=== PATIENT | female | born 1980 | race Caucasian/White ===

== ENCOUNTER 2018-06-07 17:20 | Emergency (ER) | payer MEDICAID ==
[2018-06-07] MEDS ORDERED: LORazepam 1 MG TAB PO ONE (17:36)
[2018-06-07 17:40] VITALS: BP 144/105
--- NOTE | 2018-06-07 17:45 | EDPHY ---
H & P Stated Complaint: R hand pain Time Seen by Provider: 06/07/18 17:42 HPI/ROS: CHIEF COMPLAINT: Right hand pain HISTORY OF PRESENT ILLNESS: The patient presents to the ED with complaints of neuropathic pain in her right hand after receiving a TENS treatment. The patient has a history of chronic pain. She is currently a resident at [facility]. She denies any direct fall or trauma. The patient was brought in by paramedics and was common cooperative in route. The patient escalated quite a bit prior to coming to the emergency department complaining of a disproportionate amount of pain. The patient denies any fever, fall or additional acute complaints. REVIEW OF SYSTEMS: A comprehensive 10 point review of systems is otherwise negative aside from elements mentioned in the history of present illness. Source: Patient Exam Limitations: No limitations - Medical/Surgical History Hx Asthma: Yes Hx Chronic Respiratory Disease: No Hx Diabetes: No Hx Cardiac Disease: No Hx Renal Disease: No Hx Cirrhosis: No Hx Alcoholism: No Hx HIV/AIDS: No Hx Splenectomy or Spleen Trauma: No Other PMH: C- spine fusion, Asthma, anxiety, PTSD - Social History Smoking Status: Heavy smoker - Physical Exam Exam: General Appearance: Alert, anxious, no acute distress Eyes: Pupils equal and round no pallor or injection Neurological: 5/5 strength noted throughout the right upper extremity, normal sensory exam Skin: Warm and dry, no rashes, no cellulitis or abscess Musculoskeletal: No clinical evidence of septic arthritis Extremities: symmetrical, full range of motion Constitutional: Initial Vital Signs Temperature (C) 36.9 C 06/07/18 17:38 Heart Rate 95 06/07/18 17:38 Respiratory Rate 18 06/07/18 17:38 Blood Pressure 144/105 H 06/07/18 17:38 O2 Sat (%) 96 06/07/18 17:38 O2 Delivery Mode Room Air Allergies/Adverse Reactions: ketorolac [From Toradol] Allergy (Verified 06/07/18 17:33) onion Allergy (Verified 06/07/18 17:33) prochlorperazine Allergy (Verified 06/07/18 17:33) tramadol Allergy (Verified 06/07/18 17:33) Home Medications: Medication Instructions Recorded ALPRAZolam 06/07/18 Ascorbic Acid 06/07/18 Aspirin 06/07/18 Benadryl 06/07/18 Calcium-D Tablet 06/07/18 Cyclobenzaprine 06/07/18 Duoneb (*) 06/07/18 Gabapentin 06/07/18 Lidoderm 06/07/18 Melatonin 06/07/18 Morphine Sulfate ER 06/07/18 Narcan 06/07/18 PERCOCET 2.5-325 MG TABLET 06/07/18 Senna-S Tablet 06/07/18 Zoloft 06/07/18 Medical Decision Making ED Course/Re-evaluation: The patient presents to the ED with an acute exacerbation of chronic pain. The patient is noted to be neurovascularly intact. She has no evidence of a septic arthritis, cellulitis or abscess. There is no history of a direct fall or trauma. I do not feel that x-rays will be helpful in evaluating her complaints. The patient was offered Ativan in the emergency department and declined. The patient is now stating she wants to be discharged back to her intermediate. I feel this is reasonable as I see no evidence of an acute emergency condition involving her right upper extremity. - Data Points Medications Given: Discontinued Medications Lorazepam (Ativan) 1 mg PO EDNOW ONE Stop: 06/07/18 17:37 Last Admin: 06/07/18 17:37 Dose: 1 mg Departure - Departure Disposition: Home, Routine, Self-Care Clinical Impression: Right wrist pain Condition: Good Instructions: Musculoskeletal Pain (ED) Additional Instructions: 1. You may want to avoid getting TENS treatments as this appears to exacerbate your chronic pain. 2. Return to the ED for fever, swelling or redness. 3. Follow up with your regular physician as scheduled.
== END 2018-06-07 18:27 | disposition home or self-care (01) ==
DX: M25.531 Pain in right wrist (principal); G89.29 Other chronic pain; F17.200 Nicotine dependence, unspecified, uncomplicated

== ENCOUNTER 2018-06-28 08:58 | Emergency (ER) | payer OTHER, MEDICAID ==
[2018-06-28] MEDS ORDERED: LET GEL TOPICAL 1 EA SYR TP ONE (09:10)
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
[2018-06-28 09:25] LABS: PLATELET COUNT 356 10^3/uL (150-400)
[2018-06-28] MEDS ORDERED: KETOROLAC 15 MG/1 ML SDV IVP ONE (10:50)
[2018-06-28 11:42] VITALS: BP 110/72
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
== END 2018-06-28 11:55 | disposition home or self-care (01) ==
LOC: EDUNIT#
PROC: 0HQ0XZZ Repair Scalp Skin, External Approach (ICD-10-PCS; principal; 2018-06-28)
DX: S01.81XA Laceration without foreign body of other part of head, initial encounter (principal); S80.211A Abrasion, right knee, initial encounter; S80.212A Abrasion, left knee, initial encounter; V03.09XA Pedestrian with other conveyance injured in collision with car, pick-up truck or van in nontraffic accident, initial encounter; Y92.89 Other specified places as the place of occurrence of the external cause; Y93.9 Activity, unspecified; Y99.9 Unspecified external cause status; Z98.1 Arthrodesis status; Z99.3 Dependence on wheelchair
CPT/HCPCS: 96374; J1885

== ENCOUNTER 2018-11-03 12:10 | Emergency (ER) | payer MEDICAID, OTHER ==
--- NOTE | 2018-11-03 12:50 | EDPHY ---
H & P Stated Complaint: back pain Time Seen by Provider: 11/03/18 12:47 HPI/ROS: CHIEF COMPLAINT: Back pain HISTORY OF PRESENT ILLNESS: This is a 38-year-old female status post multiple cervical and thoracic surgeries. She states that her initial injury was related to distant trauma. She has Hawkins rods. She is a resident at [facility]. She presents today complaining of low right-sided back pain that began 5 days ago. She states that it began after she was "break dancing" in her wheelchair. She had a relatively abrupt onset of pain at that site, thought that she had a pulled muscle. She consulted with the physical therapist at [facility]. She has had no improvement over the last 5 days. She routinely takes morphine 15 mg twice daily, Percocet every 6 hr, Flexeril 3 times daily, and Xanax 3 times daily. She has continued these medications. She denies new numbness or weakness. No bowel or bladder problems. No dysuria , urinary urgency or frequency, or hematuria. She has not had fever. Aside from the dancing in her wheelchair there has been no direct trauma. She is wheelchair-bound and has been for the past year. REVIEW OF SYSTEMS: A ten system review of systems was performed and is negative with the exception of the items mentioned in the HPI. Past medical history: Multiple cervical and thoracic surgeries Depression Past surgical history: Multiple cervical and thoracic surgeries Social history: She lives at [facility]. She does not use tobacco products. General Appearance: Alert. Vital signs reviewed. Heart rate 110 at triage. Eyes: Pupils equal and round, no conjunctival injection, no discharge. Anicteric. ENT, Mouth: Mucous membranes are moist, no oropharyngeal erythema or edema. Neck: No lymphadenopathy, supple. Respiratory: Lungs are clear to auscultation; no wheezes, rales, or rhonchi. Cardiovascular: Regular rate and rhythm; no murmur, rub, or gallop. Gastrointestinal: Abdomen is soft and nontender, no masses or organomegaly, bowel sounds normal. Skin: Warm and dry, no rashes on exposed skin, normal color. Back: Nontender to palpation over the thoracolumbar spine. No CVAT. Extremities: No lower extremity edema, no calf tenderness or swelling. Neurological: Alert and oriented. Moving all four extremities spontaneously. Strength is 5 over 5 bilaterally with testing of all major motor groups in UEs , 4/5 LEs. Sensation is intact to light touch over all 4 extremities. Psychiatric: Normal affect. - Personal History LMP (Females 10-55): Now Current Tetanus/Diphtheria Vaccine: Yes Current Tetanus Diphtheria and Acellular Pertussis (TDAP): Yes - Medical/Surgical History Hx Asthma: Yes Hx Chronic Respiratory Disease: No Hx Diabetes: No Hx Cardiac Disease: No Hx Renal Disease: No Hx Cirrhosis: No Hx Alcoholism: No Hx HIV/AIDS: No Hx Splenectomy or Spleen Trauma: No Other PMH: C- spine fusion, Asthma, anxiety, PTSD - Social History Smoking Status: Heavy smoker Constitutional: Initial Vital Signs Temperature (C) 36.9 C 11/03/18 12:15 Heart Rate 110 H 11/03/18 12:15 Respiratory Rate 16 11/03/18 12:15 Blood Pressure 117/94 H 11/03/18 12:15 O2 Sat (%) 96 11/03/18 12:15 O2 Delivery Mode Room Air Allergies/Adverse Reactions: ketorolac [From Toradol] Allergy (Verified 06/28/18 09:09) onion Allergy (Verified 06/28/18 09:09) prochlorperazine Allergy (Verified 06/28/18 09:09) tramadol Allergy (Verified 06/28/18 09:09) Home Medications: Medication Instructions Recorded ALPRAZolam 06/07/18 Ascorbic Acid 06/07/18 Aspirin 06/07/18 Benadryl 06/07/18 Calcium-D Tablet 06/07/18 Cyclobenzaprine 06/07/18 Duoneb (*) 06/07/18 Gabapentin 06/07/18 Lidoderm 06/07/18 Melatonin 06/07/18 Morphine Sulfate ER 06/07/18 Narcan 06/07/18 PERCOCET 2.5-325 MG TABLET 06/07/18 Senna-S Tablet 06/07/18 Zoloft 06/07/18 Lidocaine 4%/Menthol 1% [Icy Hot 1 patch TD DAILY #10 patch 11/03/18 Lidocaine/Menthol 4%/1% Patch (*)] Medical Decision Making ED Course/Re-evaluation: Because of her multiple surgeries a Lumbar spine x-ray was obtained to assess bones and any hardware visible at that site. There is mild subluxation of L5 on S1. No fractures. No obvious acute injury. I suspect that this is a musculoskeletal problem, as she thought. Neither she nor I think that there is any new neurologic deficit. Lidocaine patch was placed over the painful area and provided some relief. We talked about symptomatic treatment. She will continue with her current prescribed pain medications and a muscle relaxant. She is given a referral to [facility], as she wished to have a specialist involved. I think that this is reasonable in this complex situation. Differential Diagnosis: Back pain including but not limited to muscular pain, herniated disc, spine fracture, intra-abdominal causes and urinary tract infection. - Data Points Medications Given: Discontinued Medications Cyclobenzaprine HCl (Flexeril) 10 mg PO EDNOW ONE Stop: 11/03/18 13:07 Last Admin: 11/03/18 13:09 Dose: 10 mg Miscellaneous Information (Patch Removal) 1 ea TD DAILY21 MIAN Stop: 05/02/19 20:59 Last Admin: 11/03/18 14:32 Dose: 1 ea Miscellaneous Medication (Icy Hot Lidocaine/Menthol 4%/1% Patch) 1 patch TD EDNOW ONE Stop: 11/03/18 14:27 Last Admin: 11/03/18 14:29 Dose: 1 patch Oxycodone/Acetaminophen (Percocet 5/325) 1 tab PO EDNOW ONE Stop: 11/03/18 13:06 Last Admin: 11/03/18 13:09 Dose: 1 tab Departure - Departure Disposition: Home, Routine, Self-Care Clinical Impression: Lumbar strain Qualifiers: Encounter type: initial encounter Qualified Code(s): S39.012A - Strain of muscle, fascia and tendon of lower back, initial encounter Condition: Good Instructions: Low Back Strain (ED) Additional Instructions: Continue current medications. Try the lidocaine patches. I suggest that you arrange an appointment at [facility]--let them know that you were referred by the emergency department. Referrals: [facility] [Outside] - As per Instructions Prescriptions: Lidocaine 4%/Menthol 1% [Icy Hot Lidocaine/Menthol 4%/1% Patch (*)] 1 patch TD DAILY #10 patch
[2018-11-03] MEDS ORDERED: OXYCODONE/APAP 5/325 TAB PO ONE (13:05)
[2018-11-03] MEDS ORDERED: CYCLOBENZAPRINE 10 MG TAB PO ONE (13:06)
[2018-11-03] MEDS ORDERED: LIDOCAINE 4%/MENTHOL 1% PATCH TD ONE (14:26)
[2018-11-03 16:45] VITALS: BP 131/91
[2018-11-03] MEDS ORDERED: PATCH REMOVAL 1 EA PATCH TD SCH (21:00)
== END 2018-11-03 16:44 | disposition home or self-care (01) ==
LOC: EDUNIT#
DX: S39.012A Strain of muscle, fascia and tendon of lower back, initial encounter (principal); Z98.1 Arthrodesis status; F17.200 Nicotine dependence, unspecified, uncomplicated; Z99.3 Dependence on wheelchair